=== PATIENT | male | born 1950 | race Caucasian/White ===

== ENCOUNTER 2019-09-06 18:55 | Inpatient (IN) ==
[~2019-09-06 18:55] MED LIST: *HR* Heparin 10,000 UNIT/10 ML VIAL ONE; 0.9 % Sodium Chloride 2,000 ML ONE; Aminoglycoside Consult 1 EACH MC ONE; Heparin 1,000 UNITS/500 mL 500 ML ONE; ISOVUE-370 200 ML INFUS..BTL ONE; Nitroglycerin 1,000 MCG/10 ML VIAL IV ONE
[2019-09-06 19:04] LABS: ABG Base Excess 1 mEq/L (-2 to 3); ABG HCO3 29 mEq/L (21-27); ABG Oxygen Saturation 28 % (95-98); ABG PCO2 69 mmHg (35-45); ABG PH 7.23 pH Units (7.32-7.45); ABG PO2 23 mmHg (85-104); ABG TCO2 31 mEq/L (20-26); Blood Gas Modality ASSIST CONTROL; Blood Gas VT 500 cc
[2019-09-06 19:29] LABS: ABG Base Excess 1 mEq/L (-2 to 3); ABG HCO3 28 mEq/L (21-27); ABG Oxygen Saturation 98 % (95-98); ABG PCO2 57 mmHg (35-45); ABG PH 7.31 pH Units (7.32-7.45); ABG PO2 113 mmHg (85-104); ABG TCO2 30 mEq/L (20-26); Blood Gas VT 500 cc
[2019-09-06] MEDS ORDERED: Heparin 1,000 UNITS/500 mL 500 ML ONE (19:38)
[2019-09-06] MEDS ORDERED: Naloxone 0.4 MG/ML INJ IVP PRN (20:03)
[2019-09-06] MEDS ORDERED: *HR* Norepinephrine 4 MG/4 ML VIAL IVC ONE (20:35)
[2019-09-06] MEDS ORDERED: 0.9 % Sodium Chloride 250 ML ONE (20:35)
[2019-09-06] MEDS ORDERED: Azithromycin 500 MG in 0.9 % Sodium Chloride 250 ML IVPB SCH (22:00)
[2019-09-06] MEDS ORDERED: Norepinephrine 4 MG in 0.9 % Sodium Chloride 250 ML IVC SCH (22:15)
[2019-09-06 22:49] LABS: INR 1.5; Prothrombin Time 16.9 Seconds (9.4-12.1)
[2019-09-06 22:52] LABS: Activated Partial Thrombo Time 47.3 Seconds (26.0-36.0)
[2019-09-06 23:04] LABS: Basophils # 0.1 K/mcL (0.0-0.2); Basophils % 0.5 %; Hematocrit 29.1 % (37.5-50.1); Hemoglobin 8.8 g/dL (12.9-16.9); Immature Granulocytes % 4.3 % (0-4); Lymphocytes # 1.9 K/mcL (0.6-4.6); Lymphocytes % 13.6 %; Mean Corpuscular HGB Conc 30.2 g/dL (31.6-35.5); Mean Corpuscular Hemoglobin 30.9 pg (28.0-33.3); Mean Corpuscular Volume 102.1 fL (83.0-100.0); Mean Platelet Volume 10.7 fL (9.4-12.4); Monocytes # 1.9 K/mcL (0.0-1.3); Monocytes % 13.7 %; Neutrophils # 9.4 K/mcL (1.6-8.9); Nucleated Red Blood Cells 3.2 /100 WBC (0); Platelet Count 539 K/mcL (140-400); Red Blood Count 2.85 M/mcL (4.19-5.50); Red Cell Distribution Width 18.5 % (11.5-14.5); Segmented Neutrophils % 67.9 %; White Blood Count 13.8 K/mcL (4.3-11.1)
[2019-09-06 23:23] LABS: Albumin 2.6 g/dL (3.5-5.7); Albumin/Globulin Ratio 0.5 (1.1-2.2); Bilirubin,Direct 0.2 mg/dL (0.0-0.2); Bilirubin,Indirect 0.4 mg/dL (0.0-1.0); Bilirubin,Total 0.6 mg/dL (0.3-1.0); Globulin 5.2 g/dL (2.4-3.5); Total Protein 7.8 g/dL (6.4-8.9)
[2019-09-06 23:27] LABS: Albumin 2.6 g/dL (3.5-5.7); Albumin/Globulin Ratio 0.5 (1.1-2.2); Bilirubin,Total 0.5 mg/dL (0.3-1.0); Calcium 9.1 mg/dL (8.6-10.3); Chol/HDL Ratio 3.6 (0-4.9); Globulin 5.1 g/dL (2.4-3.5); Magnesium 2.2 mg/dL (1.6-2.6); Phosphorous 7.3 mg/dL (2.7-4.5); Potassium 5.7 mEq/L (3.5-5.1); Total Protein 7.7 g/dL (6.4-8.9); Troponin I 0.03 ng/mL (< 0.04)
[2019-09-06 23:28] LABS: % Iron Saturation 18 % (20-55); Iron 49 mcg/dL (65-175); Transferrin 193 mg/dL (203-362)
[2019-09-06 23:49] LABS: Ferritin > 1500 ng/mL (20-250)
[2019-09-06] MEDS ORDERED: D5% in 0.45% NACL 1,000 ML IVC PRN (23:58)
[2019-09-06] MEDS ORDERED: *HR* Dextrose 50 % in Water (Syg) 50 ML SYRINGE IVP PRN (23:58)
[2019-09-06] MEDS ORDERED: D5% in 0.45% NACL w KCl 20 MEQ/1,000 ML MLS IVC PRN (23:58)
[2019-09-06] MEDS ORDERED: Insulin LISPRO 300 UNITS/3 ML VIAL SQ PRN ×2 (23:58)
[2019-09-06] MEDS ORDERED: Insulin LISPRO 300 UNITS/3 ML VIAL SQ ONE (23:58)
[2019-09-07 00:31] LABS: Bilirubin,Urine Negative (Negative); Blood,Urine Negative (Negative); Clarity,Urine Cloudy (Clear); Color,Urine Yellow (Yellow); Glucose,Urine (UA) Normal (Normal); Ketones,Urine Negative (Negative); Leukocyte Esterase,Urine Small (Negative); Nitrite,Urine Negative (Negative); PH,Urine 5.5 pH Units (5.0-8.0); Protein,Urine 30 mg/dL (Neg-Trace); Specific Gravity,Urine 1.019 (1.010-1.025); Urobilinogen,Urine Normal (Normal)
[2019-09-07 00:33] LABS: Bacteria,Urine None Seen per hpf (None-Few); Hyaline Casts,Urine Moderate per lpf (None-Few); Squamous Epithelial Cell,Urine Many per lpf (None-Few); WBC,Urine 15-30 per hpf (0-3)
[2019-09-07 00:47] LABS: ABG Base Excess -1 mEq/L (-2 to 3); ABG HCO3 24 mEq/L (21-27); ABG Oxygen Saturation 97 % (95-98); ABG PCO2 44 mmHg (35-45); ABG PH 7.35 pH Units (7.32-7.45); ABG PO2 98 mmHg (85-104); ABG TCO2 26 mEq/L (20-26); Blood Gas Modality ASSIST CONTROL; Blood Gas VT 500 cc
[2019-09-07] MEDS: 0.9 % Sodium Chloride 1,000 ML IVC SCH ×5 (01:12→07:56)
[2019-09-07] MEDS: Norepinephrine 8 MG in 0.9 % Sodium Chloride 250 ML IVC SCH ×5 (01:13→23:33)
[2019-09-07] MEDS ORDERED: Albumin 25% 25gram/100mL 25 GM/100 ML IV.SOLN ONE (01:39)
[2019-09-07] MEDS: Albumin 25% 25gram/100mL 25 GM/100 ML IV.SOLN IVPB ONE ×2 (01:40→02:06)
[2019-09-07] MEDS: Insulin Human Regular 100 UNIT in 0.9 % Sodium Chloride 100 ML IVC SCH ×2 (02:01→07:52)
[2019-09-07] MEDS: 0.45 % Sodium Chloride w/KCl 20 MEQ/1,000 ML MLS IVC SCH ×5 (02:04→07:57)
[2019-09-07] MEDS: Piperacillin/Tazobactam 3.375 GM in 0.9 % Sodium Chloride Mini Bag 100 ML IVPB SCH ×2 (02:56→08:37)
[2019-09-07 03:43] LABS: Calcium 8.4 mg/dL (8.6-10.3); Potassium 5.1 mEq/L (3.5-5.1)
[2019-09-07 04:40] LABS: ABG Base Excess -4 mEq/L (-2 to 3); ABG HCO3 23 mEq/L (21-27); ABG Oxygen Saturation 97 % (95-98); ABG PCO2 51 mmHg (35-45); ABG PH 7.26 pH Units (7.32-7.45); ABG PO2 101 mmHg (85-104); ABG TCO2 24 mEq/L (20-26); Blood Gas Modality ASSIST CONTROL; Blood Gas VT 500 cc
[2019-09-07 04:43] LABS: Basophils % 0.2 %; Hematocrit 26.2 % (37.5-50.1); Hemoglobin 7.9 g/dL (12.9-16.9); Immature Granulocytes % 1.2 % (0-4); Lymphocytes # 1.4 K/mcL (0.6-4.6); Lymphocytes % 15.8 %; Mean Corpuscular HGB Conc 30.2 g/dL (31.6-35.5); Mean Corpuscular Hemoglobin 31.1 pg (28.0-33.3); Mean Corpuscular Volume 103.1 fL (83.0-100.0); Mean Platelet Volume 10.5 fL (9.4-12.4); Monocytes # 0.3 K/mcL (0.0-1.3); Monocytes % 3.7 %; Neutrophils # 6.8 K/mcL (1.6-8.9); Nucleated Red Blood Cells 3.1 /100 WBC (0); Platelet Count 451 K/mcL (140-400); Red Blood Count 2.54 M/mcL (4.19-5.50); Red Cell Distribution Width 18.5 % (11.5-14.5); Segmented Neutrophils % 79.1 %; White Blood Count 8.6 K/mcL (4.3-11.1)
[2019-09-07] MEDS: Vasopressin 40 UNIT in D5% in Water 100 ML IVC SCH ×2 (04:46→19:43)
[2019-09-07 05:14] LABS: Troponin I 0.05 ng/mL (< 0.04)
[2019-09-07 05:19] LABS: Albumin 2.9 g/dL (3.5-5.7); Albumin/Globulin Ratio 0.7 (1.1-2.2); Bilirubin,Direct 0.4 mg/dL (0.0-0.2); Bilirubin,Indirect 0.2 mg/dL (0.0-1.0); Bilirubin,Total 0.6 mg/dL (0.3-1.0); Calcium 8.5 mg/dL (8.6-10.3); Globulin 4.3 g/dL (2.4-3.5); Potassium 4.7 mEq/L (3.5-5.1); Total Protein 7.2 g/dL (6.4-8.9)
[2019-09-07 05:20] LABS: Adenovirus Not Detected (Not Detect); Bordetella Pertussis Not Detected (Not Detect); Chlamydophila pneumoniae Not Detected (Not Detect); Coronavirus 229E Not Detected (Not Detect); Coronavirus HKU1 Not Detected (Not Detect); Coronavirus NL63 Not Detected (Not Detect); Coronavirus OC43 Not Detected (Not Detect); Human Metapneumovirus Not Detected (Not Detect); Human Rhinovirus/Enterovirus Not Detected (Not Detect); Influenza A Subtype 2009 H1 Not Detected (Not Detect); Influenza B Not Detected (Not Detect); Mycoplasma pneumoniae Not Detected (Not Detect); Parainfluenza Virus 1 Not Detected (Not Detect); Parainfluenza Virus 2 Not Detected (Not Detect); Parainfluenza Virus 3 Not Detected (Not Detect); Parainfluenza Virus 4 Not Detected (Not Detect); Respiratory Syncytial Virus DETECTED (Not Detect)
[2019-09-07] MEDS ORDERED: *HR* Heparin 5,000 UNIT/ML VIAL IVP ONE (06:18)
[2019-09-07] MEDS ORDERED: *HR* Heparin 5,000 UNIT/ML VIAL IVP PRN ×2 (06:18)
[2019-09-07] MEDS ORDERED: Heparin 25,000 UNIT/250 ML D5W 25,000 UNIT/250 ML IV.SOLN IVC SCH (06:30)
[2019-09-07 06:36] LABS: Calcium 8.5 mg/dL (8.6-10.3); Potassium 4.8 mEq/L (3.5-5.1)
[2019-09-07 07:20] LABS: ABG Base Excess -5 mEq/L (-2 to 3); ABG HCO3 22 mEq/L (21-27); ABG Oxygen Saturation 90 % (95-98); ABG PCO2 48 mmHg (35-45); ABG PH 7.27 pH Units (7.32-7.45); ABG PO2 68 mmHg (85-104); ABG TCO2 24 mEq/L (20-26); Blood Gas VT 500 cc
[2019-09-07] MEDS ORDERED: Perflutren Lipid Microsphere 1.3 ML in 0.9 % Sodium Chloride 8.7 ML IVP ONE (07:45)
[2019-09-07] MEDS: Hydrocortisone Sodium Succ 100 MG/2 ML VIAL IVP SCH ×3 (07:47→23:31)
[2019-09-07] MEDS: FentaNYL (PF) 1,000 MCG in 0.9 % Sodium Chloride 80 ML IVC SCH (07:49)
[2019-09-07] MEDS: Dexmedetomidine HCl 400 MCG/100 ML MLS IVC SCH ×2 (07:51→19:36)
[2019-09-07] MEDS: EPINEPHrine 1 MG in D5% in Water 250 ML IVC SCH ×3 (07:56→10:43)
[2019-09-07] MEDS: Aspirin 81 MG TAB.CHEW PO SCH ×2 (08:40→09:35)
[2019-09-07] MEDS ORDERED: Artificial Tears SOLN 15 ML BOTTLE BOTH EYES PRN (09:06)
[2019-09-07] MEDS ORDERED: D5% in Water 1,000 ML IVC PRN (09:17)
[2019-09-07] MEDS ORDERED: *HR* Dextrose 50 % in Water (Syg) 50 ML SYRINGE IVP PRN (09:17)
[2019-09-07] MEDS ORDERED: Dextrose Gel 15 GM/37.5 ML TUBE PO PRN ×2 (09:17)
[2019-09-07 09:38] LABS: Calcium 9.6 mg/dL (8.6-10.3); Potassium 4.5 mEq/L (3.5-5.1)
[2019-09-07] MEDS: Pantoprazole 40 MG VIAL IVP SCH (09:51)
[2019-09-07] MEDS ORDERED: levoFLOXacin 750 MG/150 ML 750 MG/150 ML BAG IVPB SCH (10:00)
[2019-09-07] MEDS: Artificial Tears SOLN 15 ML BOTTLE BOTH EYES SCH ×4 (11:19→23:31)
[2019-09-07] MEDS: Insulin LISPRO 300 UNITS/3 ML VIAL SQ SCH ×3 (11:20→19:39)
[2019-09-07] MEDS: Budesonide/Formoterol 160/4.5 1 PUFF INH IH SCH ×2 (11:26→19:32)
[2019-09-07] MEDS ORDERED: Hydrocortisone Sodium Succ 100 MG/2 ML VIAL IVP SCH (12:00)
[2019-09-07] MEDS: MetroNIDAZOLE 500 MG/100 ML 500 MG/100 ML BAG IVPB SCH ×2 (12:19→19:38)
[2019-09-07] MEDS ORDERED: EPINEPHrine 5 MG in D5% in Water 250 ML IVC SCH (13:15)
[2019-09-07] MEDS: *HR* Heparin 5,000 UNIT/ML VIAL SQ SCH ×2 (13:22→23:30)
[2019-09-07] MEDS: Thiamine (B-1) 100 MG in 0.9 % Sodium Chloride 50 ML IVPB SCH (13:33)
[2019-09-07 13:38] LABS: Calcium 9.3 mg/dL (8.6-10.3); Potassium 5.2 mEq/L (3.5-5.1)
[2019-09-07] MEDS: Cefepime HCl 2,000 MG in Water for inj. (sterile) 20 ML IVP SCH (15:08)
[2019-09-07] MEDS: ALPRAZolam 0.5 MG TABLET GTUBE SCH ×2 (15:08→19:39)
[2019-09-07 15:44] LABS: ABG Base Excess -9 mEq/L (-2 to 3); ABG HCO3 18 mEq/L (21-27); ABG Oxygen Saturation 91 % (95-98); ABG PCO2 41 mmHg (35-45); ABG PH 7.25 pH Units (7.32-7.45); ABG PO2 72 mmHg (85-104); ABG TCO2 19 mEq/L (20-26); Blood Gas VT 500 cc
[2019-09-07 17:14] LABS: Calcium 9.3 mg/dL (8.6-10.3)
[2019-09-07] MEDS ORDERED: Albuterol Neb 1.25 MG/3 ML VIAL IH ONE (17:33)
[2019-09-07] MEDS ORDERED: Insulin Human Regular 10 UNIT in 0.9 % Sodium Chloride 10 ML IV ONE (17:33)
[2019-09-07] MEDS ORDERED: Sodium Bicarbonate 50 MEQ/50 ML VIAL IVP ONE ×2 (17:34→18:08)
[2019-09-07] MEDS ORDERED: *HR* Dextrose 50 % in Water (Syg) 50 ML SYRINGE IVP ONE (18:35)
[2019-09-07] MEDS: Calcium Gluconate 1gm/50mL 1 GM/50 ML BAG IVPB SCH ×2 (18:43→19:37)
[2019-09-07] MEDS: Vancomycin Oral Soln 125 MG/2.5 ML UDC GTUBE SCH (18:54)
[2019-09-07] MEDS: Chlorhexidine Rinse 15 ML MOUTHWASH MM SCH (19:39)
[2019-09-07] MEDS ORDERED: INSULIN HUMAN REGULAR IVC ONE (20:30)
[2019-09-07] MEDS ORDERED: WATER IVC ONE (20:30)
[2019-09-07] MEDS ORDERED: Sodium Bicarbonate 150 MEQ in D5% in Water 1,000 ML IVC SCH (20:30)
[2019-09-07] MEDS ORDERED: [UNRECOGNIZED DRUG - OTHER] IVC ONE (20:30)
[2019-09-07] MEDS ORDERED: DEXTROSE IVC ONE (20:30)
[2019-09-07] MEDS ORDERED: 0.9 % Sodium Chloride 1,000 ML ONE (20:52)
[2019-09-07 21:36] LABS: Albumin 3.1 g/dL (3.5-5.7); Calcium 9.4 mg/dL (8.6-10.3)
[2019-09-07] MEDS ORDERED: Phenylephrine 10 MG in 0.9 % Sodium Chloride 250 ML IVC SCH (23:15)
[2019-09-08] MEDS: Insulin LISPRO 300 UNITS/3 ML VIAL SQ SCH ×3 (00:37→07:36)
[2019-09-08] MEDS: Vancomycin Oral Soln 125 MG/2.5 ML UDC GTUBE SCH ×2 (02:21→04:07)
[2019-09-08] MEDS: FentaNYL (PF) 1,000 MCG in 0.9 % Sodium Chloride 80 ML IVC SCH (03:48)
[2019-09-08] MEDS: Cefepime HCl 2,000 MG in Water for inj. (sterile) 20 ML IVP SCH (04:06)
[2019-09-08] MEDS: *HR* Heparin 5,000 UNIT/ML VIAL SQ SCH (04:07)
[2019-09-08] MEDS: MetroNIDAZOLE 500 MG/100 ML 500 MG/100 ML BAG IVPB SCH (04:08)
[2019-09-08] MEDS: Artificial Tears SOLN 15 ML BOTTLE BOTH EYES SCH ×3 (04:08→10:25)
[2019-09-08 04:10] LABS: Basophils % 0.2 %; Hemoglobin 8.7 g/dL (12.9-16.9); Immature Granulocytes % 1.9 % (0-4); Lymphocytes # 1.4 K/mcL (0.6-4.6); Lymphocytes % 6.9 %; Mean Corpuscular Hemoglobin 30.3 pg (28.0-33.3); Mean Corpuscular Volume 104.5 fL (83.0-100.0); Mean Platelet Volume 10.8 fL (9.4-12.4); Monocytes # 2.1 K/mcL (0.0-1.3); Monocytes % 10.4 %; Neutrophils # 16.4 K/mcL (1.6-8.9); Nucleated Red Blood Cells 5.5 /100 WBC (0); Platelet Count 420 K/mcL (140-400); Red Blood Count 2.87 M/mcL (4.19-5.50); Red Cell Distribution Width 19.1 % (11.5-14.5); Segmented Neutrophils % 80.6 %
[2019-09-08 04:12] LABS: Alanine Aminotransferase 4072 Units/L (7-52); Albumin 3.1 g/dL (3.5-5.7); Albumin/Globulin Ratio 0.7 (1.1-2.2); Alkaline Phosphatase 225 Units/L (34-104); Aspartate Amino Transferase > 3000 Units/L (13-39); BUN/Creatinine Ratio 30 (6-26); Bilirubin,Total 1.1 mg/dL (0.3-1.0); Blood Urea Nitrogen 66 mg/dL (8-23); Calcium 8.9 mg/dL (8.6-10.3); Carbon Dioxide 16 mEq/L (23-29); Chloride 96 mEq/L (98-107); Globulin 4.2 g/dL (2.4-3.5); Glucose 191 mg/dL (70-105); Magnesium 2.2 mg/dL (1.6-2.6); Osmolality,Calculated 308 (280-300); Phosphorous 10.1 mg/dL (2.7-4.5); Potassium 6.4 mEq/L (3.5-5.1); Sodium 137 mEq/L (136-145); Total Protein 7.3 g/dL (6.4-8.9); eGFR For African Americans 35 (> 60); eGFR For Non-African Americans 29 (> 60)
[2019-09-08 04:19] LABS: White Blood Count 20.4 K/mcL (4.3-11.1)
[2019-09-08 04:28] LABS: INR 2.5; Prothrombin Time 28.3 Seconds (9.4-12.1)
[2019-09-08 04:41] LABS: ABG Base Excess -15 mEq/L (-2 to 3); ABG HCO3 16 mEq/L (21-27); ABG Oxygen Saturation 84 % (95-98); ABG PCO2 65 mmHg (35-45); ABG PO2 74 mmHg (85-104); ABG TCO2 18 mEq/L (20-26); Blood Gas Modality AF; Blood Gas VT 500 cc
[2019-09-08 04:50] LABS: Anisocytosis 1+ (Not Present)
[2019-09-08 04:51] LABS: Hypochromasia Present (Not Present); Microcytosis Present (Not Present); Platelet Estimate Normal (Normal); Polychromasia 1+ (Not Present)
[2019-09-08] MEDS ORDERED: Sodium Bicarbonate 150 MEQ in D5% in Water 1,000 ML IVC SCH (04:54)
[2019-09-08] MEDS: Norepinephrine 8 MG in 0.9 % Sodium Chloride 250 ML IVC SCH ×2 (04:54→09:49)
[2019-09-08] MEDS ORDERED: Sodium Bicarbonate 50 MEQ/50 ML VIAL IVP ONE ×2 (04:58→09:25)
[2019-09-08] MEDS: Dexmedetomidine HCl 400 MCG/100 ML MLS IVC SCH (06:28)
[2019-09-08] MEDS: Hydrocortisone Sodium Succ 100 MG/2 ML VIAL IVP SCH (07:45)
[2019-09-08] MEDS: Budesonide/Formoterol 160/4.5 1 PUFF INH IH SCH (08:07)
[2019-09-08] MEDS: ALPRAZolam 0.5 MG TABLET GTUBE SCH ×2 (08:09→10:21)
[2019-09-08] MEDS: Chlorhexidine Rinse 15 ML MOUTHWASH MM SCH (08:10)
[2019-09-08] MEDS: Pantoprazole 40 MG VIAL IVP SCH (08:10)
[2019-09-08] MEDS: Aspirin 81 MG TAB.CHEW PO SCH (08:10)
[2019-09-08] MEDS: Thiamine (B-1) 100 MG in 0.9 % Sodium Chloride 50 ML IVPB SCH (08:10)
[2019-09-08 08:31] LABS: Albumin 2.9 g/dL (3.5-5.7); Calcium 9.4 mg/dL (8.6-10.3); Potassium 6.7 mEq/L (3.5-5.1)
[2019-09-08] MEDS ORDERED: Insulin Human Regular 10 UNIT in 0.9 % Sodium Chloride 10 ML IV ONE (08:33)
[2019-09-08] MEDS ORDERED: *HR* Dextrose 50 % in Water (Syg) 50 ML SYRINGE IVP ONE (08:34)
[2019-09-08 09:13] VITALS: BP 105/53
[2019-09-08] MEDS ORDERED: Sodium Bicarbonate 50 MEQ/50 ML VIAL ONE (09:26)
[2019-09-08] MEDS: Calcium Gluconate 1gm/50mL 1 GM/50 ML BAG IVPB SCH ×2 (09:32→10:20)
[2019-09-08] MEDS ORDERED: Atropine Sulfate 1% 40 DROP/2 ML BOTTLE SL PRN (09:45)
[2019-09-08] MEDS ORDERED: *HR* LORazepam 2 MG/ML VIAL IVP PRN (09:45)
[2019-09-08] MEDS ORDERED: Scopolamine Patch 1.5 MG PATCH.TD72 TD SCH (09:45)
== END 2019-09-08 15:00 | disposition expired | DRG 871 ==
LOC: EMEROOARM 18:55 → ICNU 19:03
PROVIDERS: ADMIT Internal Medicine; ATTEND Internal Medicine